=== PATIENT | female | born 1980 | race Two or more races ===

== ENCOUNTER 2019-09-01 07:12 | Day surgery (SDC) | payer OTHER ==
[~2019-09-01] VITALS: Ht 157.5 cm; Wt 103.9 kg
[2019-09-01] VITALS (11 sets, daily range): BP systolic 103–166; BP diastolic 45–89
[~2019-09-01 07:12] MED LIST: Clindamycin 600mg/D5W 50ml IV ONE; celeBREX 200mg Cap **SURGERY PATIENTS ONLY ORAL ONE; oxyCONTIN 20mg tab ORAL ONE
--- NOTE | 2019-09-01 07:35 | Operative Note - PDOC ---
Operative Note Operative Note Pre-op Diagnosis: right knee internal deragment Procedure: see op report Post-op Diagnosis: same as pre-op plus Anesthesia: MAC Specimen: none Complications: none Condition: stable Estimated Blood Loss: none Implant(s) used?: No Davion Sebastian MD Sep 01, 2019 07:35
--- NOTE | 2019-09-01 07:35 | Pre-Procedure Note/Attestation ---
Pre-Procedure Note/Attestation Complete Prior to Procedure Planned Procedure: right Procedure Narrative: knee arthroscopy, posssible menesectomy, synovectomy Indications for Procedure Pre-Operative Diagnosis: right knee internal deragment Attestation I attest that I discussed the nature of the procedure; its benefits; risks and complications; and alternatives (and the risks and benefits of such alternatives ), prior to the procedure, with the patient (or the patient's legal training representative). I attest that, if there was a reasonable possibility of needing a blood transfusion, the patient (or the patient's legal training representative) was given the [facility] standardized written summary, pursuant to the [place] Blood Safety Act ([place] Health and Safety Code # 1645, as amended). I attest that I re-evaluated the patient just prior to the surgery and that there has been no change in the patient's H&P, except as documented below: Davion Sebastian MD Sep 01, 2019 07:35
[2019-09-01] MEDS ORDERED: Tylenol #3 tab (300mg/30mg) ORAL PRN (07:45)
[2019-09-01] MEDS ORDERED: D5 1/2NS 1,000 ML IV SCH (07:45)
[2019-09-01] MEDS ORDERED: HYDROmorphone 1mg/ml Carpuject SUBQ PRN (07:45)
[2019-09-01] MEDS ORDERED: HYDROcodone/Acetamin 5/325 tab ORAL PRN (07:45)
[2019-09-01] MEDS ORDERED: METFORMIN HCL1000 M2 ORAL (07:47)
[2019-09-01] MEDS ORDERED: ADVAIR 500-501 EACH INH (07:56)
[2019-09-01 08:00] LABS: APPEARANCE,URINE CLEAR; BILIRUBIN, URINE NEGATIVE (NEGATIVE); COLOR,URINE PALE YELLOW; GLUCOSE, URINE (UA) NEGATIVE (NEGATIVE); KETONES,URINE NEGATIVE (NEGATIVE); LEUKOCYTE ESTERASE ,URINE NEGATIVE (NEGATIVE); NITRITE,URINE NEGATIVE (NEGATIVE); PH,URINE 6 (4.5-8.0); PROTEIN,URINE NEGATIVE (NEGATIVE); UROBILINOGEN,URINE NORMAL MG/DL (0.0-1.0)
[2019-09-01] MEDS ORDERED: OMEPRAZOLE20 M3 ORAL (08:06)
[2019-09-01] MEDS ORDERED: celeBREX 200mg Cap **SURGERY PATIENTS ONLY ORAL ONE (08:09)
[2019-09-01] MEDS ORDERED: oxyCONTIN 20mg tab ORAL ONE (08:09)
[2019-09-01] MEDS ORDERED: DiphenhydrAMINE 50mg/ml Inj IVP PRN (10:15)
[2019-09-01] MEDS ORDERED: Hydromorphone 0.5mg/0.5ml inj IVP PRN (10:15)
[2019-09-01] MEDS ORDERED: Ketorolac 30mg Inj IV PRN (10:15)
[2019-09-01] MEDS ORDERED: Midazolam 2mg/2ml Inj IVP PRN (10:15)
[2019-09-01] MEDS ORDERED: LR 1000ml 1,000 ML IVLG SCH (10:15)
[2019-09-01] MEDS ORDERED: fentaNYL 100 mcg/2 mL IV PRN (10:15)
[2019-09-01] MEDS ORDERED: Metoclopramide 10mg/2ml Inj IVP PRN (10:15)
[2019-09-01] MEDS ORDERED: LORazepam Inj 2mg/ml 1ml IV PRN (10:15)
--- NOTE | 2019-09-01 10:15 | Anethesia Preoperative Eval ---
Anesthesia Pre-op PMH/ROS General Date of Evaluation: Sep 01, 2019 Anesthesiologist: Marquise ASA Score: ASA 2 Mallampati Score Class I : Soft palate, uvula, fauces, pillars visible Class II: Soft palate, uvula, fauces visible Class III: Soft palate, base of uvula visible Class IV: Only hard plate visible Mallampati Classification: Class III Surgeon: Romulo Diagnosis: Right knee pain Surgical Procedure: Right knee arthroscopy Anesthesia History: none Family History: no anesthesia problems Allergies: Coded Allergies: PENICILLINS (Verified Allergy, Unknown, 08/29/19) Medications: see eMAR Patient NPO?: Yes NPO Date: Aug 31, 2019 NPO Time: 22:00 Past Medical History Cardiovascular: Denies: HTN, CAD, [place], valve dz, arrhythmia, other Pulmonary: Reports: asthma; Denies: COPD, MAR[place], other Gastrointestinal/Genitourinary: Reports: GERD; Denies: CRI, ESRD, other Neurologic/Psychiatric: Reports: depression/anxiety, other - tinnitus; Denies: dementia, CVA, TIA Endocrine: Reports: DM; Denies: hypothyroidism, steroids, other HEENT: Denies: cataract (L), cataract (R), glaucoma, [place] (L), [place] (R), other Hematology/Immune: Denies: anemia, DVT, bleeding disorder, other Musculoskeletal/Integumentary: Denies: OA, RA, DJD, DDD, edema, other Other: obesity - morbid PSxH Narrative: lap shasta, lap appy Anesthesia Pre-op Phys. Exam Physician Exam Last Vital Signs Date Time Temp Pulse Resp B/P (MAP) Pulse Ox O2 Delivery O2 Flow Rate FiO2 09/01/19 08:03 97.7 77 18 129/88 98 Room Air Constitutional: other - extremely anxious Cardiovascular: other - tachy, reg rhythm Respiratory: other - decreased/distant breath sounds bilaterally Airway Exam Mallampati Score: Class III MO: limited Neck: short TMD: <2FB ROM: limited Anesthesia Pre-op A/P Labs see chart Urine Test Test 09/01/19 07:20 Urine HCG, Qualitative Negative (NEGATIVE) Studies Pre-op Studies: EKG - sr Risk Assessment & Plan Assessment: ASA II Plan: GA Status Change Before Surgery: No Pre-Antibiotics Drug: Ancef 2g Given Within 1 Hr of Incision: Yes Maki Osorio MD Sep 01, 2019 10:15
[2019-09-01] MEDS ORDERED: Kenalog-40 1ml Vial ONE (10:17)
[2019-09-01] MEDS ORDERED: Duramorph PF 5mg/10ml amp ONE (10:18)
[2019-09-01] MEDS ORDERED: Bupivacaine 0.25% Inj 30ml INJ ONE (10:18)
[2019-09-01] MEDS ORDERED: Lidocaine 1% 10mg/ml/Epi 0.005mg/ml 30ml vial INJ ONE (10:18)
[2019-09-01] MEDS ORDERED: Bupivacaine w/Epi 0.5% 30ml Vial INJ ONE (10:18)
[2019-09-01] MEDS ORDERED: Propofol 200mg/20ml IV ONE (10:58)
[2019-09-01] MEDS ORDERED: Lidocaine 1% MPF 10mg/ml 5ml ONE (10:58)
[2019-09-01] MEDS ORDERED: fentaNYL 100 mcg/2 mL ONE (10:59)
[2019-09-01] MEDS ORDERED: Metoclopramide 10mg/2ml Inj ONE (10:59)
[2019-09-01] MEDS ORDERED: Midazolam 2mg/2ml Inj ONE ×2 (10:59→11:43)
[2019-09-01] MEDS ORDERED: Sterile Water Irrig 1000ml IRRIG ONE (11:00)
[2019-09-01] MEDS ORDERED: LR 1000ml ONE (11:00)
[2019-09-01] MEDS ORDERED: Clindamycin 600mg 50 ML IV ONE (11:18)
[2019-09-01] MEDS ORDERED: NS Irrig 4000ml IRRIG ONE (11:36)
[2019-09-01] MEDS ORDERED: Ketorolac 30mg Inj IM ONE (11:38)
--- NOTE | 2019-09-01 12:00 | Immediate Post-Op Evaluation ---
Immediate Post-Op Evalulation Immediate Post-Op Evalulation Procedure: right knee arthroscopy Date of Evaluation: Sep 01, 2019 Time of Evaluation: 12:02 IV Fluids: 500 Blood Products: 0 Estimated Blood Loss: min Urinary Output: 0 Blood Pressure Systolic: 104 Blood Pressure Diastolic: 49 Pulse Rate: 74 Respiratory Rate: 16 O2 Sat by Pulse Oximetry: 97 Temperature (Fahrenheit): 98.8 Pain Score (1-10): 0 Nausea: No Vomiting: No Complications 0 Patient Status: awake, reacts, patent, none Hydration Status: adequate Drug: Clindamycin 600mg Given Within 1 Hr of Incision: Yes Maki Osorio MD Sep 01, 2019 12:00
--- NOTE | 2019-09-01 12:01 | 48 Hour Post Anesthesia Eval ---
Post Anesthesia Evaluation Procedure: right knee arthroscopy Date of Evaluation: Sep 01, 2019 Airway: patent Nausea: No Vomiting: No Pain Intensity: 0 Hydration Status: adequate Cardiopulmonary Status: at baseline Mental Status/LOC: patient returned to baseline Post-Anesthesia Complications: 0 Follow-up care needed: ready to discharge Maki Osorio MD Sep 01, 2019 12:01
--- NOTE | 2019-09-01 20:00 | Operative Note - Dictated ---
DATE OF OPERATION: 09/01/2019 PREOPERATIVE DIAGNOSIS: Right knee medial meniscus tear. POSTOPERATIVE DIAGNOSES: 1. Right knee medial meniscus tear. 2. tissue medial and lateral patellofemoral compartment. PROCEDURES: 1. Right knee diagnostic arthroscopy and possible partial medial meniscectomy. 2. Synovectomy of the medial and lateral patellofemoral compartment. SURGEON: Davion Sebastian M.D. ANESTHESIA: MAC. INDICATION FOR PROCEDURE: The patient is a pleasant female, who has had continued right knee pain. She had MRI, which showed a meniscal tear and continued evidence of instability, elected to undergo right knee arthroscopic partial medial meniscectomy. Risks, limitations, expectations, and complications of the procedure were discussed in detail. All questions addressed. DESCRIPTION OF PROCEDURE: After informed consent was obtained, the patient was brought to the operating room and placed under general anesthesia. The right leg was prepped and draped in a sterile manner. Time-out was performed. Inferolateral stab incision was then made. Trocar was introduced into the knee joint. There was hypertrophic synovial tissue making the visualization of the patellofemoral compartment somewhat difficult. Medial compartment was entered and there is hypertrophic synovial tissue. A medial working portal was established and the synovectomy in the anterior compartment and medial compartment was performed to better visualize the anterior compartment. The synovectomy and excision of the fat pad was extending the intercondylar notch of the lateral compartment. At this point, the medial compartment was entered. The posterior horn of the medial meniscus does have inferior tear. Partial meniscectomy using a shaver was performed of the inferior leaflet. The superior leaflet was intact. Once this was done, the ACL was probed and noted to be intact. Lateral compartment was entered and free of any meniscal chondral damage. The undersurface of the acromion was identified. The synovectomy was completed. At this point, the instruments were removed. Portal sites were closed with 3-0 Monocryl sutures. Steri-Strips and a sterile dressing were applied. The patient was awoken and taken to recovery room with stable vital signs. ESTIMATED BLOOD LOSS: None. COMPLICATIONS: None. SPECIMENS: None. IMPLANTS: None. Davion Sebastian M.D. DR: CARLY JOB#: [id number] CC:
== END 2019-09-01 13:40 | disposition home or self-care (01) ==
LOC: SUR 07:12
DX: S83.241A Other tear of medial meniscus, current injury, right knee, initial encounter (principal); K21.9 Gastro-esophageal reflux disease without esophagitis; E11.9 Type 2 diabetes mellitus without complications; E66.01 Morbid (severe) obesity due to excess calories; Z90.49 Acquired absence of other specified parts of digestive tract; Z90.89 Acquired absence of other organs; Z88.0 Allergy status to penicillin; R00.0 Tachycardia, unspecified; Z68.41 Body mass index [BMI] 40.0-44.9, adult
CPT/HCPCS: 29876; 29881; 81003; 81025; 82962; J1885; J2250; J2405; J2704; J2765; J3010; J3301; J3490; 94003; 94150; S0077